=== PATIENT | male | born 1945 | race Caucasian/White ===

== ENCOUNTER 2017-03-31 18:41 | Emergency (ER) | payer OTHER, BC ==
[2017-03-31] MEDS: LIDOCAINE VISCOUS 2% SOLN 15 ML UDC SWISH-SWAL (20:09)
[2017-03-31] MEDS: ALUMINUM/MAGNESIUM/SIMETH 30 ML CUP PO (20:09)
[2017-03-31] MEDS: ONDANSETRON ODT 4 MG TAB PO (20:09)
[2017-03-31] MEDS: ACETAMINOPHEN 500 MG CPLT PO (21:19)
== END 2017-03-31 21:46 | disposition home or self-care (01) ==
LOC: PHED 18:41
DX: B34.9 Viral infection, unspecified (principal); R94.31 Abnormal electrocardiogram [ECG] [EKG]
CPT/HCPCS: 87081; 87804; 87804-59; 87880; 93005; 99284